=== PATIENT | male | born 1940 | race American Indian/Alaskan Native ===

== ENCOUNTER 2022-05-13 10:08 | Emergency (ER) | payer MEDICARE ==
--- NOTE | 2022-05-13 13:07 | Emergency Department Report ---
ED Fall HPI - General Chief Complaint: Fall Stated Complaint: FALL/GROUND LEVEL FALL Time Seen by Provider: 05/13/22 11:25 Source: patient, EMS Mode of arrival: Ambulatory - History of Present Illness Initial Comments: 82 yo M who present with injury to his lip and nose from a fall this morning. Pt noted that he just tripped on something and landed on his left. He however denie s any joint pain, chest pain or sob or palpitation. No other modifying or associated factors reported. I was informed by patient bedside nurse that patient actually fell while getting off bus but not sure where patient was coming from. One history says he was coming from half-way and another says he was coming from adult day care. Complaint: fall - Related Data Allergies Allergy/AdvReac Type Severity Reaction Status Date / Time No Known Allergies Allergy Unverified 05/13/22 10:22 ED Review of Systems ROS: Stated complaint: FALL/GROUND LEVEL FALL Other details as noted in HPI Comment: All other systems reviewed and negative ENT: other (lip injury ) ED Physical Exam - General Limitations: No Limitations General appearance: alert, in no apparent distress - Head Head exam: Present: atraumatic, normal inspection - Eye Eye exam: Present: normal appearance Pupils: Present: normal accommodation - ENT ENT exam: Present: other (upper mid lip small lacertion ) - Neck Neck exam: Present: normal inspection, full ROM. Absent: tenderness - Respiratory Respiratory exam: Present: normal lung sounds bilaterally. Absent: respiratory distress, accessory muscle use - Cardiovascular Cardiovascular Exam: Present: regular rate, normal rhythm, normal heart sounds - GI/Abdominal GI/Abdominal exam: Present: soft, normal bowel sounds. Absent: distended, tenderness - Extremities Exam Extremities exam: Present: normal inspection, normal capillary refill. Absent: full ROM, tenderness, pedal edema - Back Exam Back exam: Present: normal inspection. Absent: tenderness - Neurological Exam Neurological exam: Present: alert, oriented X3 - Psychiatric Psychiatric exam: Present: normal affect, normal mood - Skin Skin exam: Present: warm, normal color ED Course Vital Signs 05/13/22 05/13/22 05/14/22 10:08 18:02 08:25 Temperature 98.1 F 98.5 F 98.1 F Pulse Rate 80 105 H Respiratory 14 18 14 Rate Blood Pressure 120/76 139/75 113/55 [Left] O2 Sat by Pulse 98 99 99 Oximetry ED Medical Decision Making - Radiology Data CT head with no acute intracranial findings CT cervical resulted FINDINGS: FACIAL BONES: No acute fracture or subluxation. Multiple dental caries noted. PARANASAL SINUSES: No significant abnormality. ORBITS: There is a chronic appearing fracture of the right inferior orbital rim with some herniation of extraocular fat but no involvement of the extraocular muscle. VISUALIZED INTRACRANIAL STRUCTURES: No significant abnormality. ADDITIONAL FINDINGS: None. IMPRESSION: 1. No definite acute facial fracture. 2. Chronic appearing fracture of the right inferior orbital rim with herniation of extraocular fat through the defect. - Medical Decision Making here with fall when he tripped-- not pain but noted mid upper lip injury-- with nasal bridge abrasion-- so to rule out facial bony injury will go ahead and check CT facial -and Head-- Critical care attestation.: If time is entered above; I have spent that time in minutes in the direct care of this critically ill patient, excluding procedure time. ED Disposition Clinical Impression: Fall Qualifiers: Encounter type: initial encounter Qualified Code(s): W19.XXXA - Unspecified fall, initial encounter Lip laceration Qualifiers: Encounter type: initial encounter Qualified Code(s): S01.511A - Laceration without foreign body of lip, initial encounter Orbital floor fracture Qualifiers: Encounter type: sequela Fracture type: closed Laterality: right Qualified Code(s): S02.31XS - Fracture of orbital floor, right side, sequela Disposition: 01 HOME / SELF CARE / HOMELESS Is pt being admited?: No Does the pt Need Aspirin: No Condition: Stable Instructions: Nonsutured Laceration Care Additional Instructions: It is okay to take Tylenol every 6-8 hours as needed for pain Call and follow-up with your primary doctor in the next 3 to 5 days for progress Please do not hesitate to call or return to emergency room if your symptoms worsen It is also okay to put ice to your swollen lip to help with the pain Referrals: QUIQUE MYLES MD [Primary Care Provider] - 3-5 Days Time of Disposition: 16:15
--- NOTE | 2022-05-13 13:25 | Cat Scan Report ---
CT head/brain wo con INDICATION: trauma fall. TECHNIQUE: All CT scans at this location are performed using CT dose reduction for ALARA by means of automated e xposure control. COMPARISON: None available. FINDINGS: There is no evidence of hemorrhage, hydrocephalus, brain edema, or mass effect/mass lesion. There are generalized changes of advancing age with age-commensurate generalized ventricular and cisternal/sul lita prominence without superimposed focal brain atrophy. The included paranasal sinuses and mastoid a ir cells are clear. The orbits appear unremarkable. IMPRESSION: 1. No acute findings. Signer Name: Miki Aguila MD Signed: 05/13/2022 1:20 PM Workstation Name: [id number]
--- NOTE | 2022-05-13 14:09 | Cat Scan Report ---
CT MAXILLOFACIAL WITHOUT CONTRAST INDICATION: trauma. TECHNIQUE: All CT scans at this location are performed using CT dose reduction for ALARA by means of automated e xposure control. COMPARISON: None available. FINDINGS: FACIAL BONES: No acute fracture or subluxation. Multiple dental caries noted. PARANASAL SINUSES: No significant abnormality. ORBITS: There is a chronic appearing fracture of the right inferior orbital rim with some herniation of extraocular fat but no involvement of the extraocular muscle. VISUALIZED INTRACRANIAL STRUCTURES: No significant abnormality. ADDITIONAL FINDINGS: None. IMPRESSION: 1. No definite acute facial fracture. 2. Chronic appearing fracture of the right inferior orbital rim with herniation of extraocular fat th rough the defect. Signer Name: Miki Aguila MD Signed: 05/13/2022 2:04 PM Workstation Name: [id number]
[2022-05-14] MEDS ORDERED: ZIPRASIDONE MESYLATE 20 MG VIAL IM ONE (12:26)
--- NOTE | 2022-05-14 14:04 | Event Note ---
Date: 05/14/22 82 yo M who was evaluated for fall and discharged yesterday from the ED but could not be released because his physical address could not be found. No family member is around or showed up to claim this patient. Police was summoned to go to the address on file and they discovered it was children daycare address. Case management is currently on this patients case for placement or disposition. I was asked for some medication to help calm patient down this morning as he was agitated. Geodon 20 mg was recommended.
--- NOTE | 2022-05-15 12:12 | Event Note ---
Date: 05/15/22 Still no family came in for this patient since discharge. Police are coming today to finger print patient to see if he can be traced back to his family member. No other issue with him this morning. Pt is seen eating his food at this time. At around 13:30 an investigative police came and scan patients fingers and was able to discover that he was living at [facility]. A call made to this facility but it was recorded that they were close today been Monday. A call will be made to the community tomorrow Monday for resolution.
[2022-05-15] MEDS ORDERED: LORazepam 2 MG/ML VIAL IM ONE (20:27)
[2022-05-15] MEDS ORDERED: LORazepam 1 MG TAB PO ONE (20:37)
[2022-05-16] MEDS ORDERED: LORazepam 1 MG TAB PO ONE (11:23)
[2022-05-20 06:33] VITALS: BP 118/56
== END 2022-05-20 13:15 | disposition home or self-care (01) ==
LOC: ED 10:08
DX: S02.31XA Fracture of orbital floor, right side, initial encounter for closed fracture (principal); S01.511A Laceration without foreign body of lip, initial encounter; W18.39XA Other fall on same level, initial encounter; Y93.89 Activity, other specified; Y92.89 Other specified places as the place of occurrence of the external cause; Y99.8 Other external cause status
CPT/HCPCS: 70450; 70486; 96372; 99284; J3486